=== PATIENT | male | born 1990 | race African-American/Black ===

== ENCOUNTER 2019-10-04 06:57 | Emergency (ER) | payer OTHER ==
[~2019-10-04] VITALS: Ht 172.7 cm; Wt 105.2 kg
--- NOTE | 2019-10-04 07:09 | NUR ---
ED Nurse Note: Pt ambulated to ED with c/o cough, sore throat, flu-like symptoms x 3 days. VSS, on RA. Placed on bed.
[2019-10-04 07:10] VITALS: BP 122/79
--- NOTE | 2019-10-04 07:24 | NUR ---
ED Nurse Note: ERMD on bedside.
[2019-10-04] MEDS ORDERED: TAMIFLU75 MG ORAL (07:34)
[2019-10-04] MEDS ORDERED: PREDNISONE20 MG ORAL (07:34)
[2019-10-04] MEDS ORDERED: PROMETHAZINE-C118 M1 ORAL (07:34)
[2019-10-04 07:40] VITALS: BP 122/79
--- NOTE | 2019-10-04 07:40 | NUR ---
ER DISCHARGE NOTE: Patient is cleared to be discharged per ERMD, pt is aox4, on room air, with stable vital signs. pt was given dc and prescription instructions, pt was able to verbalize understanding, pt id band removed. pt is able to ambulate with steady gait. pt took all belongings.
--- NOTE | 2019-10-04 09:55 | Emergency Room Report ---
History of Present Illness General Chief Complaint: Upper Respiratory Illness Source: Patient Present Illness HPI 29-year-old male presents ED for evaluation. Complaining of runny nose, cough, congestion, body aches for the last 2 days. States he had a fever at home. Afebrile in triage. Pain is dull, 7 out of 10, nonradiating. Denies sick contacts or recent travel. History of asthma. Has been using his inhaler. Did not receive flu shot this year. No other aggravating relieving factors. Denies any other associated symptoms Allergies: Coded Allergies: No Known Allergies (Unverified , 10/04/19) Patient History Past Medical History: none Past Surgical History: none Pertinent Family History: none Social History: Denies: smoking, alcohol use, drug use Immunizations: UTD Reviewed Nursing Documentation: PMH: Agreed; PSxH: Agreed Review of Systems All Other Systems: negative except mentioned in HPI Physical Exam Vital Signs Date Time Temp Pulse Resp B/P (MAP) Pulse Ox O2 Delivery O2 Flow Rate FiO2 10/04/19 07:03 98.2 83 16 122/79 (93) 95 Room Air Sp02 EP Interpretation: reviewed, normal General Appearance: no apparent distress, alert, GCS 15, non-toxic Head: normocephalic, atraumatic Eyes: bilateral eye normal inspection, bilateral eye PERRL ENT: hearing grossly normal, normal pharynx, no angioedema, normal voice Neck: full range of motion, supple/symm/no masses Respiratory: chest non-tender, lungs clear, normal breath sounds, speaking full sentences Cardiovascular #1: regular rate, rhythm, no edema Cardiovascular #2: 2+ carotid (R), 2+ carotid (L), 2+ radial (R), 2+ radial (L) , 2+ dorsalis pedis (R), 2+ dorsalis pedis (L) Gastrointestinal: normal bowel sounds, non tender, soft, non-distended, no guarding, no rebound Rectal: deferred Genitourinary: normal inspection, no CVA tenderness Musculoskeletal: back normal, normal range of motion, gait/station normal, non- tender Neurologic: alert, motor strength/tone normal, oriented x3, sensory intact, responsive, speech normal Psychiatric: judgement/insight normal, memory normal, mood/affect normal, no suicidal/homicidal ideation Reflexes: 3+ bicep (R), 3+ bicep (L), 3+ tricep (R), 3+ tricep (L), 3+ knee (R) , 3+ knee (L) Lymphatic: no adenopathy Medical Decision Making Diagnostic Impression: Primary Impression: Flu-like symptoms ER Course Hospital Course 29-year-old M presents to ED complaining of chills + bodyaches + cough Differential diagnoses include: URI, pharyngitis, otitis media, influenza Clinical course Patient placed on stretcher. After initial history physical exam reveals a young female in no acute distress. Bilateral TM unremarkable, no pharyngeal erythema. Lungs clear. No CVA tenderness. Clinical findings concerning for influenza. Afebrile. Nontoxic-appearing. Discussed findings with patient. Will discharge home with Tamiflu, cough medication, prednisone. States he has an inhaler. Safe for discharge for close outpatient follow-up. I will provide referrals Diagnosis - influenza-like symptoms Stable and discharged home with prescriptions for tamiflu, promethazine/codeine , prednisone. drink plenty of fluids. Instructed to followup with PMD. Return to ED if symptoms recur or worsen Last Vital Signs Date Time Temp Pulse Resp B/P (MAP) Pulse Ox O2 Delivery O2 Flow Rate FiO2 10/04/19 07:40 98.2 68 20 122/79 99 Room Air Status: improved Disposition: HOME, SELF-CARE Condition: Stable Scripts Oseltamivir Phosphate (Tamiflu) 75 Mg Capsule 75 MG ORAL TWICE A DAY for 5 Days, CAP Prov: Kit Quintero MD 10/04/19 Codeine/Promethazine Hcl* (PROMETHAZINE-CODEINE SYRUP*) 118 Ml Syrup 5 ML ORAL Q6H PRN for For Cough, #118 ML 0 Refills Prov: Kit Quintero MD 10/04/19 Prednisone* (PREDNISONE*) 20 Mg Tablet 40 MG ORAL DAILY, #10 TAB Prov: Kit Quintero MD 10/04/19 Referrals: [facility],REFERRING (PCP) Steph Quintero Comp. [facility] Patient Instructions: Influenza, Adult, [id number] Kit Quintero MD Oct 04, 2019 09:55
== END 2019-10-04 07:40 | disposition home or self-care (01) ==
LOC: EMR 07:20
DX: R05 Cough (principal); R52 Pain, unspecified
CPT/HCPCS: 99282